=== PATIENT | female | born 1980 | race Two or more races ===

== ENCOUNTER → 2021-01-22 | Outpatient (CLI) | payer OTHER ==
[2021-01-26 04:10] LABS: HSV-1 DNA Negative (Negative); HSV-2 DNA Negative (Negative)
== END | disposition home or self-care (01) ==
LOC: LAB SHORT 17:03 → LAB EV 17:03
PROVIDERS: Physician Assistant
DX: K13.70 Unspecified lesions of oral mucosa (principal); J02.9 Acute pharyngitis, unspecified
CPT/HCPCS: 87070; 87529